=== PATIENT | female | born 1965 | race Caucasian/White ===

== ENCOUNTER 2021-11-03 15:21 | Emergency (ER) | payer OTHER, SELFPAY ==
--- NOTE | 2021-11-03 15:30 | DI.RAD_ITS ---
Exam(s) XR ANKLE RT COMPLETE EXAM: XR ANKLE RT COMPLETE CLINICAL HISTORY: twist injury. TECHNIQUE: 2D digital imaging was performed of the right ankle. Three images were obtained. AP, la teral and oblique views were obtained. COMPARISON: No exams were available for comparison FINDINGS: BONES: No acute fracture is present. No bony destructive lesion is seen. Postsurgical changes are se en at the 1st tarsometatarsal joint. JOINTS: The ankle mortise is normally aligned. SOFT TISSUE: Normal. IMPRESSION: No acute fracture or dislocation. DATA REPOSITORY: RADIATION DOSE DELIVERED:
[2021-11-03 15:34] VITALS: BP 136/80; PULSE 78; RESP 14; TEMP 36.2; O2SAT 98
--- NOTE | 2021-11-03 15:40 | W.ED.GENAD ---
Discharge Plan Disposition Patient Disposition: HOME Condition: Stable Discharge Details Clinical Impression: Ankle sprain Primary Care Provider: Unknown,Unknown ED Provider: Paramjit Kimball Discharge Instructions Instructions: Ankle Sprain (ED) Additional Instructions: X-ray is unremarkable. Wear splint and use crutches as needed, advance activity as tolerated. [id number] Tylenol and/or Motrin as directed for discomfort. Rest, elevate, cool compresses every 2 hours for 20 minutes. If symptoms persist, please follow-up with your primary care provider in 7-10 days. Watch for new or worsening symptoms and return to the ER for any concerns. Stand Alone Forms: Work Release Medical Decision Making R ankle twist while at work. No other injury. Neuro/vascular/tendon intact. Will apply ice and obtain X ray X-ray unremarkable. Discussed x-ray and disposition with patient. Ankle splint and crutches provided. Standard discharge and return precautions were provided. This documentation was generated using [employer] dictation system, please disregard any oddities of phrase or misspellings. Imaging Data Radiologic Study: Attestation: I personally reviewed and interpreted this imaging study as follows: Imaging: X-Ray Radiologist's impression: Exam(s) XR ANKLE RT COMPLETE EXAM: XR ANKLE RT COMPLETE CLINICAL HISTORY: twist injury. TECHNIQUE: 2D digital imaging was performed of the right ankle. Three images were obtained. AP, lateral and oblique views were obtained. COMPARISON: No exams were available for comparison FINDINGS: BONES: No acute fracture is present. No bony destructive lesion is seen. Postsurgical changes are seen at the 1st tarsometatarsal joint. JOINTS: The ankle mortise is normally aligned. SOFT TISSUE: Normal. IMPRESSION: No acute fracture or dislocation. HPI General Mode of arrival: ambulatory. Date/Time Provider Initiated Documentation: 11/03/21 15:25. Limitations to Documentation: no limitations. Information obtained by: patient. History of Present Illness 56 year old F presents to the emergency department with the chief complaint of R ankle injury, described as mild (rest) and severe (walking), with intensity rated at 9 (rest). Quality is described as aching, and is localized to the right and lower extremity. Patient reports no radiation. Patient started experiencing this minute(s) (45) and it has been constant. improves with No relieving factors improve symptom(s), Movement worsens symptoms . Patient notes no other symptoms.. Patient did receive the following treatments prior to arrival, none General Stated Complaint: Orthopedic JAVI: 4 Review of Systems Constitutional Constitutional: Denies weakness Musculoskeletal Musculoskeletal: Denies deformity, Reports arthralgias, Denies numbness, Reports stiffness and Denies tingling Integumentary/Breasts Skin/Breast: Denies rash Neurologic Neurologic: Denies numbness, Denies tingling and Denies weakness PFSH All Active Problems (Updated 11/03/21 @ 16:35 by MAGY Salinas) Ankle sprain (Acute) Social History Smoking/Tobacco Use Status: Never Smoking risk assessment performed?: Yes Alcohol Intake: current Alcohol Intake frequency: holidays/special occasions only Drug use: Never Do you feel safe at home: Yes Do you feel safe in your relationship?: Yes Exam Const General: cooperative, healthy appearing, comfortable and no acute distress Orientation: alert and awake HENMT Head: normal to inspection, normocephalic and atraumatic Eyes Conjunctivae: conjunctivae normal Neck Neck: normal visual inspection, trachea midline and supple Resp Effort & Inspection: normal respiratory effort and able to speak in complete sentences Cardio Rate: regular rate Rhythm: regular rhythm Skin General skin exam: no rashes or lesions noted Neuro General: patient alert, patient awake, moves all extremities and no focal motor deficits Cognition: normal cognition Speech: speech normal Gait: antalgic Motor: muscle tone normal throughout Sensory Exam: no sensory deficits noted Extrem General: full ROM and capillary refill normal Right lower extremity: full ROM, normal capillary refill and ankle Details: tenderness Location: of the lateral malleolus and swelling Details: laterally (mild) Psych Appearance: grossly normal Mental Status: mental status grossly normal Course Vital Signs Vital signs: Vital Signs Temperature 36.2 C L 11/03/21 15:34 Pulse 78 11/03/21 15:34 Respiratory Rate 14 11/03/21 15:34 Blood Pressure 136/80 11/03/21 15:34 Pulse Oximetry 98 11/03/21 15:34 Temperature 36.2 C L 11/03/21 15:34 Temperature Source Skin 11/03/21 15:34 Pulse 78 11/03/21 15:34 Respiratory Rate 14 11/03/21 15:34 Blood Pressure 136/80 11/03/21 15:34 Blood Pressure Position Sitting 11/03/21 15:34 Pulse Oximetry 98 11/03/21 15:34 Oxygen Delivery Method Room Air 11/03/21 15:34 Oxygen Flow Rate 0 11/03/21 15:34
== END 2021-11-03 17:10 | disposition home or self-care (01) ==
PROVIDERS: Emergency Provider Physician Assistant
DX: S93.491A Sprain of other ligament of right ankle, initial encounter (principal); X50.1XXA Overexertion from prolonged static or awkward postures, initial encounter
CPT/HCPCS: 29515; 99283; 73610